=== PATIENT | female | born 1985 | race Two or more races ===

== ENCOUNTER 2016-09-07 20:12 | Emergency (ER) | payer SELFPAY ==
[~2016-09-07] VITALS: Ht 162.6 cm; Wt 90.7 kg
[2016-09-07] MEDS ORDERED: SODIUM CHLORIDE 0.9% 1,000 ML IVB ONE (21:24)
[2016-09-07 22:01] LABS: Basophils # (auto) 0.1 uL; Basophils % (auto) 0.9 % (0.0-2.0); CONDITION Y; Eosinophils # (auto) 0.1 uL; Hematocrit 39.3 % (36.0-46.0); Hemoglobin 13.5 g/dL (12.2-16.2); Lymphocytes # (auto) 2.7 uL; Lymphocytes % (auto) 36.1 % (10.0-50.0); Mean Corpuscular Hemoglobin 30.8 pg (28.0-32.0); Mean Corpuscular Hgb Conc. 34.3 g/dL (32.0-36.0); Mean Corpuscular Volume 89.8 fL (80.0-100.0); Mean Platelet Volume 7.7 fL (7.4-10.4); Monocytes # (auto) 0.5 uL; Monocytes % (auto) 7.4 % (0.0-12.0); Neutrophils % (auto) 53.6 % (37.0-80.0); Platelet Count (auto) 282 10^3/uL (140-450); Red Cell Distribution Width 13.4 % (11.6-16.0); White Blood Cell 7.4 10^3/uL (4.4-10.8)
[2016-09-07 22:07] LABS: Salicylate 3.7 mg/dL (2.8-20.0)
[2016-09-07 22:12] LABS: Acetaminophen < 2.0 ug/mL (10-30)
[2016-09-07 23:09] LABS: Albumin 3.5 g/dL (3.4-5.0); BUN/Creatinine Ratio 19.4; Bilirubin, Total 0.4 mg/dL (0.2-1.0)
[2016-09-07 23:17] LABS: Potassium 3.8 mmol/L (3.5-5.1)
[2016-09-08 05:00] VITALS: BP 137/76
== END 2016-09-08 05:44 | disposition home or self-care (01) ==
LOC: EDBD 20:12 → ER 20:29
DX: F10.120 Alcohol abuse with intoxication, uncomplicated (principal); R45.851 Suicidal ideations; F32.9 Major depressive disorder, single episode, unspecified; F41.9 Anxiety disorder, unspecified
CPT/HCPCS: 36415; 80053; 80320; 80329; 85025; 96360; 96361; 99285; J7030